=== PATIENT | female | born 1985 | race Caucasian/White ===

== ENCOUNTER 2017-01-08 01:30 | Outpatient (CLI) | payer BC ==
[~2017-01-08 01:30] MED LIST: IBUPROFEN600 MG PO; NORCO 5-325 TA1 EACH PO
[2017-02-25] MEDS ORDERED: COLACE 100MG C100 MG PO (17:09)
== END 2017-01-08 02:58 | disposition home or self-care (01) ==
LOC: GENOP 01:30
DX: O42.92 Full-term premature rupture of membranes, unspecified as to length of time between rupture and onset of labor (principal); Z3A.32 32 weeks gestation of pregnancy
CPT/HCPCS: G0463